=== PATIENT | male | born 1970 | race Native Hawaiian/Other Pacific Islander ===

== ENCOUNTER 2019-10-18 10:09 | Emergency (ER) | payer BC ==
[~2019-10-18] VITALS: Ht 188 cm; Wt 158.8 kg
[2019-10-18 10:17] VITALS: TEMP 98.1
[2019-10-18 11:42] LABS: PLATELET COUNT 256 K/uL (142-355)
[2019-10-18 11:46] LABS: POTASSIUM 3.9 mmol/L (3.6-5.2)
[2019-10-18 13:53] VITALS: BP 148/82
== END 2019-10-18 13:53 | disposition home or self-care (01) ==
LOC: ED 10:09
PROVIDERS: Family Medicine
DX: J20.9 Acute bronchitis, unspecified (principal)
CPT/HCPCS: 80053; 85027; 87502; 94664; 96372; 99283; J2930